=== PATIENT | female | born 1980 ===

== ENCOUNTER 2017-05-07 02:20 | Emergency (ER) | payer OTHER | END 2017-05-07 03:05 | disposition home or self-care (01) | LOC: H.EROB2 02:20 | DX: O47.1 False labor at or after 37 completed weeks of gestation (principal); Z3A.37 37 weeks gestation of pregnancy ==

== ENCOUNTER 2017-05-20 06:59 | Inpatient (IN) | payer OTHER ==
[2017-05-20 07:41] VITALS: BMI 27.8
[2017-05-20] MEDS ORDERED: Oxytocin 30 units/LR 500ML 30 U/500 ML BAG IV SCH (07:45)
[2017-05-20] MEDS: Lactated Ringer's 1,000 ML IV SCH ×4 (08:05→17:49)
[2017-05-20 08:20] VITALS: BP 138/97; PULSE 77; RESP 17; TEMP 98.4; O2SAT 98
[2017-05-20 09:06] LABS: BASO % 0.5 % (0.0-2.0); EOS # 0.2 K/uL (0.0-0.7); EOS % 2.4 % (0.0-4.0); HEMOGLOBIN 12.8 g/dL (12.0-16.0); LYMPH # 1.5 K/uL (1.0-4.3); LYMPH % 17.7 % (20.0-40.0); MEAN CELL VOLUME 88.2 fl (81.0-99.0); MEAN CORPUSCULAR HEMOGLOBIN 29.3 pg (27.0-31.0); MEAN CORPUSCULAR HGB CONC 33.2 g/dL (33.0-37.0); MONO % 11.9 % (0.0-10.0); NEUT # 5.8 K/uL (1.8-7.0); NEUT % 67.5 % (50.0-75.0); NRBC % 0.2 % (0.0-0.0); RBC 4.38 Mil/uL (3.80-5.20); RED CELL DISTRIBUTION WIDTH 13.7 % (11.5-14.5); WHITE BLOOD COUNT 8.7 K/uL (4.8-10.8)
--- NOTE | 2017-05-20 16:44 | OBADHP ---
Datetime: 05/20/2017 16:43 Pelvic Type - PN: Adequate Extremities - PN: Normal Abdomen - PN: Normal Back - PN: Normal Breast - PN: Normal Lungs - PN: Normal Heart - PN: Normal Thyroid - PN: Normal Neurologic - PN: Normal HEENT - PN: Normal General - PN: Normal Vital Signs Provider: Reviewed; Within Normal Limits IP Chief Complaint: Uterine contractions Genitourinary Exam: Normal DTRs - PN: Normal IP Adm Impression: Term, intrauterine ; No Active Labor IP Admit Plan: Admit to unit; Initiate labor induction protocol Datetime: 05/07/2017 02:59 Admit Comment, IP Provider: 36 y/o @ 37.1 weeks IUP presents w/ uterine contractions. The p atient reprots contractions starting at midnight, every 5-10 minutes, lasting 30 sec to 1 min, and ge tting stronger. The patient also reports mild spotting but no gross bleed. Patient reports positive movements and taking PNVs and iron. Patient denies LOF, headaches, chest pain, SOB, n/v/d, dy suria, and fevers. Clinic: Dr. Sanchez PMH: none PSH: none OBHx: x2 SOC: denies smoking, alcohol, and drugs O: CV: RRR Resp: CTA bl Pelvic: 1 cm, 40%, -4, itact membranes A: 36 y/o @ 37.1 weeks IUP presents w/ uterin contractions P: observe and evaluate continuous monitoring 02:55 pelvic exam as stated above labor precautions given discharge home Andrea James MD Medical Editor The patient was seen with the resident I agree with the note patient cleared for discharge FHR - Baseline A Provider: 140 Membranes, Provider: Intact Comments, ACOG Physical Exam: 1 cm, 40%, -4, intact membranes IP Hx Assessment: The History has been Reviewed and is Current NICHD Variability Prov Fetus A: Moderate 6-25bpm NICHD Accel Fetus A IP Provider: [id number] FHR Category Provider Fetus A: Category I NICHD Decel Fetus A IP Provider: None Dilatation, Provider: 1 Effacement, Provider: 40 Station, Provider: -4 EGA AdmitDate IP: 37.1
--- NOTE | 2017-05-20 16:50 | OBADHP ---
Datetime: 05/20/2017 16:43 Admit Comment, IP Provider: iup at39 weeks uneventful course admitted for induction Presentation-Admit: Oblique FHR - Baseline A Provider: 130 Gestation - Est Wks by US: 39.0 Pool Provider: Negative NICHD Variability Prov Fetus A: Moderate 6-25bpm NICHD Accel Fetus A IP Provider: 10X10 FHR Category Provider Fetus A: Category I NICHD Decel Fetus A IP Provider: None Dilatation, Provider: 1-2 Effacement, Provider: 75% Station, Provider: -2 EGA AdmitDate IP: 39.0
[2017-05-20] MEDS ORDERED: Bupivacaine HCl 0.25% PF (10 ml) Inj ONE (17:13)
[2017-05-20] MEDS ORDERED: Fentanyl/Bupivacaine HCl 250 ML EPI ONE (17:13)
[2017-05-20] MEDS ORDERED: Nalbuphine 20 mg/ml Inj (1 ml) IVP ONE (17:55)
[2017-05-20] MEDS ORDERED: Lactated Ringer's 1,000 ML IV SCH (18:00)
[2017-05-20] MEDS ORDERED: Lidocaine 1% Inj (20ml) ONE (19:10)
--- NOTE | 2017-05-20 21:24 | OBDS ---
DELIVERY PERSONNEL Delivery Doctor: Phoenix Keller MD Veneer Production Machine Operator: Raissa Scott RN Anesthesiologist: Yohana Newton MD MATERNAL INFORMATION Delivery Anesthesia: Epidural Estimated Blood Loss (ml): 250ml Maternal Complications: None Provider Comments: delivery of live baby boy 9/9 clear fluid very small first degree laceratio n and repair with 2-0 chromic LABOR SUMMARY EDC: 05/27/2017 00:00 No. Babies in Womb: 1 Attempted: No Labor Anesthesia: Epidural LABOR INFORMATION Onset of Labor: 05/20/2017 16:10 Oxytocin: Augmentation Group B Beta Strep: Negative Antibiotics # of Doses: n/a Antibiotics Time of Last Dose: n/a Steroids Given: None Reason Steroids Not Administered: Not Applicable MEMBRANES Membranes Rupture Method: Artificial Rupture of Membranes: 05/20/2017 14:20 Amniotic Fluid Color: Clear Amniotic Fluid Amount: None Amniotic Fluid Odor: Normal VAGINAL DELIVERY Episiotomy: None Laceration Extension: First Degree Laceration Type: Perineal Laceration Repair Note: repair of first degree laceration with 2-0 chromic Count Comment: correct BABY A INFORMATION Born in Route : No : N/A PRESENTATION/POSITION BABY A Presentation: Cephalic INFORMATION BABY A Gestational Age at Delivery: 39.0 Gestational Status: Term Infant Outcome : Liveborn IDENTIFICATION/MEDS BABY A ID Band Number: [id number] ID Band Location: Left Leg; Left Arm
[2017-05-20] MEDS ORDERED: Oxycodone/Acetaminophen 5/325 mg Tab PO PRN ×2 (21:29→22:00)
[2017-05-21 08:15] LABS: BASO % 0.3 % (0.0-2.0); EOS # 0.1 K/uL (0.0-0.7); EOS % 1.4 % (0.0-4.0); HEMOGLOBIN 11.8 g/dL (12.0-16.0); LYMPH # 1.7 K/uL (1.0-4.3); LYMPH % 16.2 % (20.0-40.0); MEAN CELL VOLUME 88.4 fl (81.0-99.0); MEAN CORPUSCULAR HEMOGLOBIN 29.5 pg (27.0-31.0); MEAN CORPUSCULAR HGB CONC 33.4 g/dL (33.0-37.0); MEAN PLATELET VOLUME 10.2 fl (7.2-11.7); MONO % 9.3 % (0.0-10.0); NEUT # 7.7 K/uL (1.8-7.0); NEUT % 72.8 % (50.0-75.0); RED CELL DISTRIBUTION WIDTH 13.5 % (11.5-14.5); WHITE BLOOD COUNT 10.6 K/uL (4.8-10.8)
[2017-05-21] MEDS ORDERED: Oxycodone/Acetaminophen 5/325 mg Tab PO PRN ×2 (16:35→16:40)
[2017-05-22] MEDS ORDERED: Benzocaine/Menthol SPRAY TOP PRN (08:26)
--- NOTE | 2017-05-22 09:39 | OBPPN ---
Datetime: 05/22/2017 09:35 PP Pain Prov: Within normal limits PP Nausea Prov: Denies PP Flatus Prov: Yes PP Breasts Prov: Normal PP Heart Prov: Normal PP Lungs Prov: Normal PP Abdomen/Uterus Prov: Normal PP Lochia Prov: Normal PP Vulva/Perineum Prov: Normal PP CVA Tenderness Prov: Normal PP Extremities Prov: Normal PP Progress Prov: Normal PP Impression Prov: Normal progression PP Plan Prov: Continue present management PP Progress Note Prov: stable ppd2 continue care IP PP Procedures: None Vital Signs Provider PP: Reviewed; Within Normal Limits
== END 2017-05-22 13:10 | disposition home or self-care (01) | DRG 775 ==
LOC: H.EROB2 06:59 → H.L&D 07:19 → H.EROB2 07:40 → H.L&D 07:41 → H.OB/GYN 23:21
PROVIDERS: ADMIT Specialist; ATTEND Specialist
PROC: 10E0XZZ Delivery of Products of Conception, External Approach (ICD-10-PCS; principal; 2017-05-20)
PROC: 0HQ9XZZ Repair Perineum Skin, External Approach (ICD-10-PCS; 2017-05-20)
PROC: 10907ZC Drainage of Amniotic Fluid, Therapeutic from Products of Conception, Via Natural or Artificial Opening (ICD-10-PCS; 2017-05-20)
PROC: 4A1HXCZ Monitoring of Products of Conception, Cardiac Rate, External Approach (ICD-10-PCS; 2017-05-20)
DX: O70.0 First degree perineal laceration during delivery (principal); Z37.0 Single live birth; Z3A.39 39 weeks gestation of pregnancy

== ENCOUNTER 2017-07-29 07:21 | Day surgery (SDC) | payer OTHER ==
[2017-07-20 07:32] VITALS: BMI 25.8
[2017-07-29 07:41] VITALS: RESP 18
[2017-07-29] MEDS ORDERED: Propofol 10 mg/ml Inj (20 ML) ONE (09:19)
[2017-07-29] MEDS ORDERED: Rocuronium 10 mg/ml (5 ml) ONE (09:20)
[2017-07-29] MEDS ORDERED: Succinylcholine 200 mg/10 ml Inj IV ONE (09:20)
[2017-07-29] MEDS ORDERED: Midazolam 2 MG/2 ML VIAL ONE (09:59)
[2017-07-29] MEDS ORDERED: Lactated Ringer's 1,000 ML IV ONE ×2 (10:10→10:55)
[2017-07-29] MEDS ORDERED: Dexamethasone 4 mg/1 ml ONE (10:18)
[2017-07-29] MEDS ORDERED: Neostigmine Methylsulfate 3mg/3ml Syringe IV ONE (10:39)
[2017-07-29] MEDS ORDERED: HYDROmorphone 0.5 mg/0.5 ml ISec IVP PRN (11:06)
[2017-07-29 14:28] VITALS: BP 117/84; PULSE 63; TEMP 97.8; O2SAT 98
--- NOTE | 2017-08-01 14:58 | OP ---
PROCEDURE DATE: 07/29/2017 PREOPERATIVE DIAGNOSIS: Multiparity. POSTOPERATIVE DIAGNOSIS: Multiparity. PROCEDURE: Bilateral tubal laparoscopy, bilateral tubal cautery. SURGEON: Adam Keller MD TYPE OF ANESTHESIA: General anesthesia. ANESTHESIA ADMINISTERED BY: FINDINGS: Tubes and ovaries within normal limits. ESTIMATED BLOOD LOSS: Minimal. DESCRIPTION OF PROCEDURE: With the patient in the dorsal lithotomy position under general anesthesia, the patient was prepped and draped in usual sterile manner. A straight cath was used to enter the bladder after which the patient was examined. Following this, the anterior cervix was grasped with single tooth tenaculum and dilated. After this was done, the uterine manipulator put into place. We then moved to the abdomen where the abdomen was tented and Veress needle was introduced into the abdomen, inflating the abdomen to about 3-4 liters of CO2. Following this, a small incision was made below the umbilicus about 1 cm and #10 trocar was introduced. The sleeve was left in place. Following this, the laparoscope with the camera attached was introduced into the abdominopelvic cavity and second punch was made at 5 mm above midline, about 2-3 cm above the pubic bone. Following this, tubes were identified and cauterized bilaterally, extensively, maintaining hemostasis. After this was done, the instruments were removed from the pelvic cavity. The abdomen was deflated. Incision was closed with 1 Vicryl and Dermabond and then the instruments were removed from the vagina. The patient tolerated procedure well and was in satisfactory condition on the way to the recovery room. Adam Keller MD
== END 2017-07-29 14:35 | disposition hospice, home (50) ==
LOC: H.OPSURG 07:21
PROVIDERS: ATTEND Specialist
DX: Z64.1 Problems related to multiparity (principal); Z30.2 Encounter for sterilization
CPT/HCPCS: 58600; J0330; J1100; J1170; J2250; J2405; J2704; J2710; J3010; J7030; J7120